=== PATIENT | male | born 1980 | race Caucasian/White ===

== ENCOUNTER 2020-06-27 13:10 | Day surgery (SDC) | payer BC ==
[2020-06-27] MEDS ORDERED: HYDROmorphone 2 MG/ML Syringe ONE (13:51)
--- NOTE | 2020-06-27 14:20 | PCM.PREANE ---
Preanesthetic Assessment - Anesthesia/Transfusion/Family Hx Anesthesia History: Prior Anesthesia Without Reaction Family History of Anesthesia Reaction: No Transfusion History: No Prior Transfusion(s) Intubation History: Unknown - Review of Systems General: No Symptoms Pulmonary: No Symptoms Cardiovascular: No Symptoms Gastrointestinal: No Symptoms Neurological: No Symptoms Other: Reports: None - Physical Assessment Vital Signs: Last Vital Signs Temp 36.2 C 06/27/20 13:35 Pulse 81 06/27/20 13:35 Resp 16 06/27/20 13:35 BP 183/119 H 06/27/20 13:35 Pulse Ox 98 06/27/20 13:35 Height: 5 ft 11 in Weight: 96.615 kg ASA Class: 2 Mental Status: Alert & Oriented x3 Airway Class: Mallampati = 2 Dentition: Reports: Normal Dentition Thyro-Mental Finger Breadths: 3 Mouth Opening Finger Breadths: 3 ROM/Head Extension: Full Lungs: Clear to Auscultation, Normal Respiratory Effort Cardiovascular: Regular Rate, Regular Rhythm - Allergies Allergies/Adverse Reactions: Allergies Allergy/AdvReac Type Severity Reaction Status Date / Time No Known Allergies Allergy Verified 08/09/18 10:44 - Blood Blood Available: No - Anesthesia Plan Pre-Op Medication Ordered: None - Acknowledgements Anesthesia Type Planned: General Anesthesia Pt an Appropriate Candidate for the Planned Anesthesia: Yes Alternatives and Risks of Anesthesia Discussed w Pt/Guardian: Yes Pt/Guardian Understands and Agrees with Anesthesia Plan: Yes PreAnesthesia Questionnaire HEENT History: Reports: Impaired Vision Other HEENT History: wears glasses Cardiovascular History: Reports: Hypertension Respiratory History: Reports: Sleep Apnea Other Respiratory History: states recently had a sleep study and diagnosed with sleep apnea and needs CPAP but has not received it yet Gastrointestinal History: Reports: None Genitourinary History: Reports: Renal Calculus Other Genitourinary History: states has a left kidney stone Musculoskeletal History: Reports: None Neurological History: Reports: Other (See Below) (tremor from time to time probably due to anxiety) Psychiatric History: Reports: Anxiety Endocrine/Metabolic History: Reports: None Immunologic History: Reports: None Oncologic (Cancer) History: Reports: None Dermatologic History: Reports: None - Infectious Disease History Infectious Disease History: Reports: None - Past Surgical History Head Surgeries/Procedures: Reports: None HEENT Surgical History: Reports: None Cardiovascular Surgical History: Reports: None Respiratory Surgical History: Reports: None GI Surgical History: Reports: Colonoscopy (14 - normal) Female Surgical History: Reports: None Endocrine Surgical History: Reports: None Musculoskeletal Surgical History: Reports: None - SUBSTANCE USE Tobacco Use Status *Q: Never Tobacco User Tobacco Use Within Last Twelve Months: Smokeless Tobacco - HOME MEDS Home Medications: Home Meds Metoprolol Succinate 0.5 tab PO DAILY 06/26/20 [History] Zolpidem Tartrate 1 tab PO DAILY 06/26/20 [History] - CURRENT (IN HOUSE) MEDS Current Meds: Current Medications Discontinued Medications Hydromorphone HCl (Dilaudid) Confirm Administered Dose 2 mg .ROUTE .STK-MED ONE Stop: 06/27/20 13:52 Last Admin: 06/27/20 13:55 Dose: 2 mg Documented by:
[2020-06-27] MEDS ORDERED: HYDROmorphone 2 MG/ML Syringe IVPUSH PRN (15:29)
[2020-06-27] MEDS ORDERED: fentaNYL 250 MCG/5 ML SDV ONE (17:05)
[2020-06-27] MEDS ORDERED: Midazolam 1 MG/ML 2 ML SDV ONE (17:05)
[2020-06-27] MEDS ORDERED: Propofol 200 MG/20 ML SDV ONE (17:05)
[2020-06-27] MEDS ORDERED: Ketorolac 30 MG/ML SDV ONE (17:08)
[2020-06-27] MEDS ORDERED: Rocuronium Bromide 50 MG/5 ML Syringe ONE (17:08)
[2020-06-27] MEDS ORDERED: Ondansetron 4 MG/2 ML SDV ONE (17:08)
[2020-06-27] MEDS ORDERED: Lidocaine 2% 5 ML SDV ONE (17:08)
[2020-06-27] MEDS ORDERED: Glycopyrrolate 0.2 MG/ML SDV ONE (17:08)
[2020-06-27] MEDS ORDERED: ceFAZolin 1 GM Vial ONE (17:46)
[2020-06-27] MEDS ORDERED: Sodium Chloride 0.9% 20 ML ONE (17:46)
[2020-06-27] MEDS ORDERED: Iopamidol 408 MG/ML 20 ML SDV ONE (18:00)
[2020-06-27] MEDS ORDERED: fentaNYL 100 MCG/2 ML SDV IVPUSH PRN (18:07)
[2020-06-27] MEDS ORDERED: Acetaminophen 1,000 MG in Premix Bag 1 BAG IV PRN (18:07)
[2020-06-27] MEDS ORDERED: Naloxone 0.4 MG/ML Syringe ONE (18:31)
--- NOTE | 2020-06-27 19:18 | PCM.POSTAN ---
POST ANESTHESIA ASSESSMENT - MENTAL STATUS Mental Status: Alert - VITAL SIGNS Vital Signs: Last Vital Signs Temp 36.6 C 06/27/20 18:35 Pulse 67 06/27/20 19:00 Resp 12 06/27/20 19:00 BP 140/100 H 06/27/20 19:00 Pulse Ox 97 06/27/20 19:00 - RESPIRATORY Respiratory Status: Respiratory Rate WNL - CARDIOVASCULAR CV Status: Pulse Rate WNL - GASTROINTESTINAL GI Status: No Symptoms - POST OP HYDRATION Hydration Status: Adequate & Stable
--- NOTE | 2020-06-27 20:30 | PCM48HPAN ---
Post Anesthesia Note - EVALUATION WITHIN 48HRS OF ANESTHETIC Vital Signs in Normal Range: Yes Patient Participated in Evaluation: Yes Respiratory Function Stable: Yes Airway Patent: Yes Cardiovascular Function Stable: Yes Hydration Status Stable: Yes Pain Control Satisfactory: Yes Nausea and Vomiting Control Satisfactory: Yes Mental Status Recovered: Yes Vital Signs: Last Vital Signs Temp 37.0 C 06/27/20 19:30 Pulse 70 06/27/20 19:30 Resp 18 06/27/20 19:30 BP 121/88 06/27/20 19:30 Pulse Ox 95 06/27/20 19:30
--- NOTE | 2020-06-27 22:54 | OR ---
SURGEON: Preston Villanueva M.D. DATE OF PROCEDURE: 06/27/2020 PRIMARY SURGEON: Preston Villanueva M.D. PREOPERATIVE DIAGNOSIS: Left lower ureteral stone. POSTOPERATIVE DIAGNOSIS: Left lower ureteral stone. OPERATION: Left ureteroscopy and stone removal. DESCRIPTION: The patient was given general anesthesia. He was placed in dorsal lithotomy position and prepped and draped with sterile drapes. Cystourethroscopy was done; that was normal. A Glidewire was advanced alongside the stone all the way up into the renal pelvis. The lower ureter was then dilated using a UroMax II balloon dilator to approximately 15-[place]ammar[place]. The rigid ureteroscope was then advanced in the left lower ureter while the guidewire was still in place. The stone was grasped and removed. The patient tolerated the procedure well. The guidewire was removed. The bladder was emptied. This stone was submitted for analysis, and the patient was moved to the recovery room in good condition. JAEL / TOSHA /[id number]
--- NOTE | 2020-07-01 13:51 | CR ---
EXAM DATE: 06/27/20 PATIENT'S AGE: 39 Patient: GER PHILIP Facility: [facility] Site . Site : [id number] Study: XRay-Pelvis -06/27/2020 7:39:37 PM Ordering Physician: Kay Johnston Final Report: ADDENDUM: Signature line added to report. CRL:jj INDICATION: Fracture. TECHNIQUE: Intraoperative C-arm fluoroscopy. IMPRESSION: Intraoperative C-arm fluoroscopy was provided. Fluoroscopy time 2.6 seconds. Two images were captured. Dictated by: Perez Carr MD @06/30/2020 12:08:10 PM Signed by: Perez Carr MD @06/30/2020 12:08:10 PM Signed by: Perez Carr MD @07/01/2020 1:29:48 PM (Electronic Signature) Report Signed by Proxy. DREW
== END 2020-06-27 20:00 | disposition home or self-care (01) ==
LOC: MW.SDS 13:10 → MW.MS 19:35 → MW.SDS 20:00
PROVIDERS: ATTEND Urology
DX: N13.2 Hydronephrosis with renal and ureteral calculous obstruction (principal); F41.9 Anxiety disorder, unspecified; I10 Essential (primary) hypertension; G47.30 Sleep apnea, unspecified; G47.33 Obstructive sleep apnea (adult) (pediatric); F43.10 Post-traumatic stress disorder, unspecified; Z79.899 Other long term (current) drug therapy; Z87.891 Personal history of nicotine dependence
CPT/HCPCS: 52352; A9270; J0690; J1170; J1885; J2001; J2250; J2405; J2704; J3010; J3490; Q9966; C1769

== ENCOUNTER 2020-10-06 12:28 | Emergency (ER) | payer OTHER, BC ==
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
--- NOTE | 2020-10-06 14:08 | CT ---
INDICATION: Trauma. COMPARISON: None TECHNIQUE: CT examination of the head was performed as axial sections without intravenous contrast. Images were obtained from the vertex of the skull through the skull base. Please note that all CT scans at this facility use dose modulation, iterative reconstruction, and/or weight-based dosing when appropriate to reduce radiation dose to as low as reasonably achievable. FINDINGS: The brain shows no sign of mass lesion, mass effect, hemorrhage, or edema. The ventricles and sulci are normal in appearance for the patient`s age. The visualized portions of the orbits are normal in appearance. There is facial region fracture which will not be described in this report. Those findings will be discussed in the facial report to follow The osseous structures are normal in their appearance with no sign of abnormality in the skull base or calvarium excluding the facial structures discussed in the facial report. IMPRESSION: 1. Facial region fractures as described in the facial bone report 2. No acute intracranial posttraumatic findings. Please note that all CT scans at this facility use dose modulation, iterative reconstruction, and/or weight-based dosing when appropriate to reduce radiation dose to as low as reasonably achievable. Dictated by Blake Viveros MD @ Oct 06 2020 2:04PM Signed by Dr. Blake Viveros @ Oct 06 2020 2:07PM
--- NOTE | 2020-10-06 14:17 | CT ---
Indication: Status post fall facial bruising Technique: CT examination of the facial bones was performed. Imaging was acquired in the axial plane. Contrast was administered. Imaging was acquired from the mid cervical area to above the frontal sinuses. Sagittal and coronal reformatted imaging was performed Comparison: None prior to today Findings: There is a comminuted fracture of the left zygomatic arch. This is inwardly displaced moderately. There is a fracture the left orbital wall laterally. Maximum displacement is about 2 millimeters. The medial wall/lamina papyracea appears to be intact on the left. There is a subtle fracture of the orbital floor on the left through the infraorbital canal. This is not displaced and there is no entrapment the inferior rectus. There are several fractures of the left lateral maxillary wall with maximum displacement of about 3 millimeters. There is an air-fluid level in the left maxillary sinus. There is also a nondisplaced fracture of the anterior wall of the left maxilla far laterally. Impression: Multiple left-sided fractures as described Please note that all CT scans at this facility use dose modulation, iterative reconstruction, and/or weight-based dosing when appropriate to reduce radiation dose to as low as reasonably achievable. Dictated by Blake Viveros MD @ Oct 06 2020 2:07PM Signed by Dr. Blake Viveros @ Oct 06 2020 2:14PM
== END 2020-10-06 16:00 | disposition home or self-care (01) ==
LOC: MW.ED 12:28
DX: S02.40FA Zygomatic fracture, left side, initial encounter for closed fracture (principal); S02.32XA Fracture of orbital floor, left side, initial encounter for closed fracture; S02.40DA Maxillary fracture, left side, initial encounter for closed fracture; S02.842A Fracture of lateral orbital wall, left side, initial encounter for closed fracture; I10 Essential (primary) hypertension; Z79.899 Other long term (current) drug therapy; V89.2XXA Person injured in unspecified motor-vehicle accident, traffic, initial encounter
CPT/HCPCS: 70450; 70450-26; 70486; 70486-26; 99283; 99284-25

== ENCOUNTER 2021-01-07 16:18 | Emergency (ER) | payer BC ==
[2021-01-07] MEDS ORDERED: Ibuprofen 600 MG Tab PO ONE (16:35)
[2021-01-07] MEDS ORDERED: Acetaminophen 325 MG Tab PO ONE (16:35)
--- NOTE | 2021-01-07 17:43 | EDM.PDOC ---
ED HPI GENERAL MEDICAL PROBLEM - General Chief Complaint: Chest Pain Time Seen by Provider: 01/07/21 16:26 - History of Present Illness INITIAL COMMENTS - FREE TEXT/NARRATIVE: HISTORY AND PHYSICAL: History of present illness: This is a healthy 40-year-old gentleman with no significant past medical history for hypertension, diabetes, liver, lung, kidney problems who presents to the ER today after being diagnosed with coronavirus 2 days ago with symptom onset 5 days ago complaining of midepigastric and midsternal chest pain that started this morning. Patient reports that he had increasing cough that started last night with minimal sputum production. Patient reports after having bouts of coughing last night he started having discomfort in his chest and then this morning he reports that the pain was more severe. Patient reports that he had fevers 3 days ago but has not had any fever since. Patient reports that he was having headaches which are unusual for him. Patient is complaining of a cough. Patient denies any nausea, vomiting, diarrhea. Patient reports pain with deep inspiration to his midsternal and midepigastric region. Patient reports reproducible pain with coughing. He reports that the pain is sharp in nature. Patient has any calf tenderness or swelling. Patient denies any history of DVT or PE. Patient reports that he lives with his who has had prior diagnosis of breast cancer but is currently not on any chemotherapy or immunocompromising medications. Patient reports that he is already spoken to the [facility] and they have already contacted him and told that he should be on quarantine until January 12. Patient denies any shortness of breath. Review of systems: As per history of present illness and below otherwise all systems reviewed and negative. Past medical history: As per history of present illness and as reviewed below otherwise noncontributory. Surgical history: As per history of present illness and as reviewed below otherwise noncontributory. Social history: No reported history of drug abuse. Family history: As per history of present illness and as reviewed below otherwise noncontributory. Physical exam: This patient was seen and evaluated during the 2019 SARS-CoV-2 novel coronavirus pandemic period. Community viral transmission is ongoing at time of this encounter and the emergency department is operating under pandemic response procedures. Constitutional: Patient is oriented to person, place, and time. Appears well- developed and well-nourished. No distress. HEENT: Moist mucous membranes Head: Normocephalic and atraumatic Eyes: Right eye exhibits no discharge. Left eye exhibits no discharge. No scleral icterus Neck: Normal range of motion. No tracheal deviation present. Cardiovascular: Normal rate and regular rhythm. Pulmonary: Effort normal, no respiratory distress. Abdominal: No distention Musculoskeletal: Normal range of motion Neurologic: Alert and oriented to person, place and time. Skin: [place], warm and dry. Psychiatric: Normal mood and affect. Behavior is normal. Judgment and thought content normal. Nursing note and vital signs have been reviewed Diagnostics: Chest Xray: Normal cardiac silhouette No infiltrates or effusions identified. No PTX No evidence of acute bony fracture. As interpreted by ER MD: Deborah EKG: As interpreted by ER physician: Deborah: Nonspecific ST-T wave abnormalities Normal axis No evidence of ST elevation [place] Normal sinus rhythm heart rate of 93 Therapeutics: Ibuprofen/Tylenol Assessment and plan: Is a 40-year-old gentleman who presents ER today secondary to sharp, reproducible chest pain with deep inspiration and cough. Patient has a recent diagnosis of coronavirus and is set to self quarantine until January 12. Patient chest x-ray reveals no significant pathology. Patient's EKG is unremarkable. Patient will be discharged home with return precautions if he is short of breath, worsening pain or any other new or concerning symptoms. Reassessment at the time of disposition demonstrates that the patient is in no acute distress. The patient has remained stable throughout the entire ED visit and is without objective evidence for acute process requiring urgent intervention or hospitalization. The patient is stable for discharge, counseling is provided as documented above, discussed symptomatic treatment and specific conditions for return. I have spoken with the patient/caregiver and discussed todays findings, in addition to providing specific details for the plan of care. Questions are answered and there is agreement with the plan. Definitive disposition and diagnosis as appropriate pending reevaluation and review of above. cHEST Pain Score (Numeric/FACES): 7 - Related Data Allergies Allergy/AdvReac Type Severity Reaction Status Date / Time No Known Allergies Allergy Verified 01/07/21 17:02 Home Meds: Home Meds Metoprolol Succinate 0.5 tab PO DAILY 06/26/20 [History] Zolpidem Tartrate 1 tab PO DAILY 06/26/20 [History] Past Medical History HEENT History: Reports: Impaired Vision Other HEENT History: wears glasses Cardiovascular History: Reports: Hypertension Respiratory History: Reports: Sleep Apnea Other Respiratory History: states recently had a sleep study and diagnosed with sleep apnea and needs CPAP but has not received it yet Gastrointestinal History: Reports: None Genitourinary History: Reports: Renal Calculus Other Genitourinary History: states has a left kidney stone Musculoskeletal History: Reports: None Neurological History: Reports: Other (See Below) Psychiatric History: Reports: Anxiety Endocrine/Metabolic History: Reports: None Immunologic History: Reports: None Oncologic (Cancer) History: Reports: None Dermatologic History: Reports: None - Infectious Disease History Infectious Disease History: Reports: Chicken Pox, Shingles - Past Surgical History Head Surgeries/Procedures: Reports: None HEENT Surgical History: Reports: None Cardiovascular Surgical History: Reports: None Respiratory Surgical History: Reports: None GI Surgical History: Reports: Colonoscopy Endocrine Surgical History: Reports: None Musculoskeletal Surgical History: Reports: None Social & Family History - Family History Family Medical History: No Pertinent Family History - Tobacco Use Tobacco Use Status *Q: Never Tobacco User - Caffeine Use Caffeine Use: Reports: None - Recreational Drug Use Recreational Drug Use: No ED ROS GENERAL - Review of Systems Review Of Systems: See Below ED EXAM, GENERAL - Physical Exam Exam: See Below Course - Vital Signs Last Recorded V/S: Last Vital Signs Temp 98.2 F 01/07/21 17:02 Pulse 107 H 01/07/21 17:02 Resp 17 01/07/21 17:02 BP 123/87 01/07/21 17:02 Pulse Ox 96 01/07/21 17:02 - Orders/Labs/Meds Orders: Active Orders 24 hr Category Date Time Status Chest 1V Frontal [CR] Stat Exams 01/07/21 16:36 Taken Meds: Medications Discontinued Medications Generic Name Dose Route Start Last Admin Trade Name Freq PRN Reason Stop Dose Admin Acetaminophen 650 mg 01/07/21 16:35 01/07/21 16:53 Acetaminophen 325 Mg Tab PO 01/07/21 16:36 650 mg NOW ONE Administration Ibuprofen 600 mg 01/07/21 16:35 01/07/21 16:53 Ibuprofen 600 Mg Tab PO 01/07/21 16:36 600 mg ONETIME ONE Administration Departure - Departure Time of Disposition: 17:42 Disposition: Home, Self-Care 01 Condition: Good Clinical Impression: 2019 novel coronavirus disease (COVID-19), Chest pain - Discharge Information Instructions: COVID-19 Frequently Asked Questions, COVID-19: Quarantine vs. Isolation - CDC, Pleurodynia, Chest Wall Pain, Prevent the Spread of COVID-19 if You Are Sick - CDC Referrals: PCP,None [Primary Care Provider] - Forms: ED Department Discharge Additional Instructions: You were seen and evaluated in ER today for further evaluation of chest wall pain which is most likely mechanical in nature from muscles/Bones/cartilage in your chest. This is most likely related to coughing from your coronavirus infection. Your chest x-ray not reveal any significant abnormality and your EKG was normal. Please take ibuprofen and Tylenol as needed for chest wall pain. Please follow-up with your doctor as scheduled. 1. Your COVID-19 screening is positive. That means you do have the coronavirus and you are considered contagious. Your vital signs and oxygen saturation are well enough that you were able to monitor your symptoms at home. Continue to monitor for trouble breathing, new confusion or inability to arouse, bluish lips or face or any of the other symptoms we discussed -if this occurs please return to the emergency room. 2. Please self quarantine over the next 10 days. Inform any persons that you have been in contact with since you started becoming symptomatic that you have tested positive; they should be made aware and take the appropriate steps as needed. 3. You can take NyQuil during the evening to help get a restful night sleep. May alternate Tylenol and ibuprofen as needed for pain and fever management. 4. The [facility] will be calling you and following up with you. The [place] COVID 19 Hotline phone number , They are open Tuesday - Tuesday 7am - 7pm. Follow up with your primary care provider for re-evaluation and re-testing after the 10 day quarantine and discuss when you should be seen. The following information is given to patients seen in the emergency department who are being discharged to home. This information is to outline your options for follow-up care. We provide all patients seen in our emergency department with a follow-up referral. The need for follow-up, as well as the timing and circumstances, are variable depending upon the specifics of your emergency department visit. If you don't have a primary care physician on staff, we will provide you with a referral. We always advise you to contact your personal physician following an emergency department visit to inform them of the circumstance of the visit and for follow-up with them and/or the need for any referrals to a consulting specialist. The emergency department will also refer you to a specialist when appropriate. This referral assures that you have the opportunity for follow-up care with a specialist. All of these measure are taken in an effort to provide you with optimal care, which includes your follow-up. Under all circumstances we always encourage you to contact your private physician who remains a resource for coordinating your care. When calling for follow-up care, please make the office aware that this follow-up is from your recent emergency room visit. If for any reason you are refused follow-up, please contact the [facility] Emergency Department at and asked to speak to the emergency department charge nurse. [facility] [address] [place] [address] [place] [address] Sepsis Event Note (ED) - Evaluation Sepsis Screening Result: No Definite Risk - Focused Exam Vital Signs: Vital Signs Temp Pulse Resp BP Pulse Ox 01/07/21 17:02 98.2 F 107 H 17 123/87 96 - My Orders Last 24 Hours: My Active Orders 01/07/21 16:36 Chest 1V Frontal [CR] Stat - Assessment/Plan Last 24 Hours: My Active Orders 01/07/21 16:36 Chest 1V Frontal [CR] Stat
--- NOTE | 2021-01-07 18:11 | CR ---
INDICATION: Cough and chest pain. COVID positive. TECHNIQUE: Chest 1 views COMPARISON: November 10, 2008. FINDINGS: Cardiovascular and mediastinum: Heart size and vasculature are normal in caliber and appearance. Lungs and pleural spaces: Airspace infiltrate present in the left lower lobe. Remainder of the lungs and pleural spaces are clear. Bones and soft tissues: No significant findings. IMPRESSION: Left lower lobe pneumonia. Dictated by Hima Mccracken MD @ 01/07/2021 6:09:[address] Hima Mccracken @ Jan 07 2021 6:09PM
== END 2021-01-07 17:55 | disposition home or self-care (01) ==
LOC: MW.ED 16:18
DX: U07.1 COVID-19 (principal); I10 Essential (primary) hypertension; E11.9 Type 2 diabetes mellitus without complications; Z79.899 Other long term (current) drug therapy
CPT/HCPCS: 71045; 93005; 99285; A9270; 93010; 99283

== ENCOUNTER 2021-01-12 14:14 | Observation (INO) | payer BC ==
[2021-01-12] MEDS ORDERED: Ondansetron 4 MG/2 ML SDV IVPUSH PRN (14:31)
[2021-01-12] MEDS ORDERED: Docusate Sodium 100 MG Cap PO PRN (14:31)
[2021-01-12] MEDS ORDERED: Sodium Chloride 0.9% 2.5 ML Syringe FLUSH PRN (14:31)
[2021-01-12] MEDS ORDERED: Albuterol/Ipratropium 4 GM Inhalation Spray INH PRN (14:37)
[2021-01-12] MEDS ORDERED: Azithromycin 250 MG Tab PO SCH (14:45)
[2021-01-12] MEDS ORDERED: Enoxaparin 40 MG/0.4 ML Syringe SUBCUT SCH (14:45)
[2021-01-12] MEDS ORDERED: cefTRIAXone 1 GM in Premix Bag 1 BAG IV SCH (14:45)
--- NOTE | 2021-01-12 15:27 | PCM.HP.2 ---
H&P History of Present Illness - General Date of Service: 01/12/21 Admit Problem/Dx: Admission Diagnosis/Problem Admission Diagnosis/Problem Pneumonia Source of Information: Patient History Limitations: Reports: No Limitations - History of Present Illness Initial Comments - Free Text/Narative: This 40-year-old male with past medical history of hypertension and insomnia presented to outpatient clinic due to worsening shortness of breath and chest burning. He reports that he initially started getting sick on January 01 with fatigue and a headache where he self quarantined at home until he could be tested. He tested positive for COVID-19 on January 05 he presented to the ER on January 07 with concerns of shortness of breath and overall not feeling well. Chest x- ray at that time was negative no signs of acute infiltrates lab work stable. He was sent home to monitor symptoms. Patient reports that he is continue to have shortness of breath coughing and burning within his lungs. He reports today he did have some pink sputum which startled him. He reports he had a fever the first weekend for 1 day otherwise no repeat fevers. Denies any major sinus congestion intermittent rhinitis. No sore throat. No complete loss of taste or smell but reports many foods taste extremely salty when the otherwise would not be salty tasting. He reports that he has been monitoring his oxygen at home and has not dropped below 93%. He reports he continues to feel sluggish and tired and not sleeping well. he denies any history of CAD, diabetes. He reports he chews 1 tin of tobacco weekly, no alcohol use and no recreational drug use. He was seen today in urgent clinic lab work obtained which showed normal WBC. Platelet count 196,000, hemoglobin 15.5 hematocrit 45.0 ESR elevated at 35. Sodium and potassium stable BUN and creatinine 13 and 1.0 respectively glucose was 96 no transaminitis noted. Bilirubin 0.3 AST 35 ALT 50 and alk phos 72. Vital signs remained stable 97% on room air no tachycardia noted. Patient was admitted directly due to chest x-ray findings of worsening left-sided infiltrates and suspected CAP and COVID-19. - Related Data Allergies/Adverse Reactions: Allergies Allergy/AdvReac Type Severity Reaction Status Date / Time No Known Allergies Allergy Verified 01/12/21 15:30 Home Medications: Home Meds Metoprolol Succinate 50 mg PO DAILY 06/26/20 [History] Zolpidem Tartrate 1 tab PO DAILY 06/26/20 [History] Past Medical History - Past Health History Medical/Surgical History: Denies Medical/Surgical History HEENT History: Reports: Impaired Vision Other HEENT History: wears glasses Cardiovascular History: Reports: Hypertension Respiratory History: Reports: Sleep Apnea Other Respiratory History: states recently had a sleep study and diagnosed with sleep apnea and needs CPAP but has not received it yet Gastrointestinal History: Reports: None Genitourinary History: Reports: Renal Calculus Other Genitourinary History: states has a left kidney stone Musculoskeletal History: Reports: Other (See Below) Other Musculoskeletal History: facial fractures a couple of years ago Neurological History: Reports: Other (See Below) Other Neuro History: Insomnia Psychiatric History: Reports: Anxiety Endocrine/Metabolic History: Reports: None Immunologic History: Reports: None Oncologic (Cancer) History: Reports: None Dermatologic History: Reports: None - Infectious Disease History Infectious Disease History: Reports: Chicken Pox, Shingles - Past Surgical History Head Surgeries/Procedures: Reports: None HEENT Surgical History: Reports: None Cardiovascular Surgical History: Reports: None Respiratory Surgical History: Reports: None GI Surgical History: Reports: Colonoscopy Male Surgical History: Reports: None Endocrine Surgical History: Reports: None Neurological Surgical History: Reports: None Musculoskeletal Surgical History: Reports: None Social & Family History - Family History Family Medical History: No Pertinent Family History - Tobacco Use Tobacco Use Status *Q: Light Tobacco User Tobacco Use Within Last Twelve Months: Smokeless Tobacco Packs/Tins Daily: 0.2 Used Tobacco, but Quit: Yes Month/Year Tobacco Last Used: 5 years ago Second Hand Smoke Exposure: No - Caffeine Use Caffeine Use: Reports: Coffee - Alcohol Use Alcohol Use Frequency: Rarely, Socially - Recreational Drug Use Recreational Drug Use: No - Living Situation & Occupation Living situation: Reports: Occupation: Employed H&P Review of Systems - Review of Systems: Review Of Systems: See Below General: Reports: Malaise, Fatigue HEENT: Reports: Headaches (Has improved since initial diagnosis of Covid), Rhinitis. Denies: Sore Throat, Vertigo Pulmonary: Reports: Shortness of Breath, Pleuritic Chest Pain, Cough, Sputum ([place] sputum noted this morning) Cardiovascular: Reports: Dyspnea on Exertion. Denies: Chest Pain, Palpitations, Orthopnea Gastrointestinal: Reports: No Symptoms. Denies: Abdominal Pain, Black Stool, Bloody Stool, Diarrhea, Nausea, Vomiting Genitourinary: Reports: No Symptoms. Denies: Dysuria, Frequency, Burning Musculoskeletal: Reports: No Symptoms Skin: Reports: No Symptoms Psychiatric: Reports: No Symptoms Neurological: Reports: No Symptoms Hematologic/Lymphatic: Reports: No Symptoms Immunologic: Reports: No Symptoms Exam - Exam Exam: See Below - Vital Signs Weight: 96.797 kg - Exam General: Alert, Oriented, Cooperative HEENT: Conjunctiva Clear, Mucosa Moist & [place], Posterior Pharynx Clear Neck: Supple Lungs: Crackles (Fine crackles to left lower base). No: Normal Respiratory Effort (Mild dyspnea noted with exertion) Cardiovascular: Regular Rate, Regular Rhythm GI/Abdominal Exam: Normal Bowel Sounds, Soft, Non-Tender, No Distention Extremities: Normal Inspection, Normal Range of Motion, Non-Tender, No Pedal Edema Neuro Extensive - Mental Status: Alert, Oriented x3 Neuro Extensive - Motor, Sensory, Reflexes: CN II-XII Intact Psychiatric: Alert, Normal Affect, Normal Mood Sepsis Event Note - Evaluation Sepsis Screening Result: No Definite Risk - Problem List (1) CAP (community acquired pneumonia) SNOMED Code(s): 198545243 ICD Code: J18.9 - PNEUMONIA, UNSPECIFIED ORGANISM Status: Acute Current Visit: Yes Qualifiers: Laterality: left Lung location: unspecified part of lung Qualified Code(s): J18.9 - Pneumonia, unspecified organism (2) 2019 novel coronavirus disease (COVID-19) SNOMED Code(s): 493243299 ICD Code: U07.1 - COVID-19 Status: Acute Current Visit: No (3) HTN (hypertension) SNOMED Code(s): 79030294 ICD Code: I10 - ESSENTIAL (PRIMARY) HYPERTENSION Status: Chronic Current Visit: Yes Qualifiers: Hypertension type: essential hypertension Qualified Code(s): I10 - Essential (primary) hypertension Problem List Initiated/Reviewed/Updated: Yes Orders Last 24hrs: Active Orders 24 hr Category Date Time Status Patient Status [ADT] Routine ADT 01/12/21 14:31 Ordered Height and Weight [RC] DAILY Care 01/12/21 14:31 Ordered Intake and Output [RC] QSHIFT Care 01/12/21 14:32 Ordered Oxygen Therapy [RC] PRN Care 01/12/21 14:31 Ordered RT Incentive Spirometry [RC] Q1HWA Care 01/12/21 14:37 Ordered RT Post Treatment Assessment [RC] Click to Edit Care 01/12/21 14:38 Ordered RT Pre-Treatment Assessment [RC] Click to Edit Care 01/12/21 14:38 Ordered Telemetry Monitoring [Cardiac Monitoring] [RC] . Care 01/12/21 15:15 Ordered DIRECTED Up With Assistance [RC] ASDIRECTED Care 01/12/21 14:31 Ordered VTE/DVT Education [RC] PER UNIT ROUTINE Care 01/12/21 14:31 Ordered Vital Signs [RC] Q4H Care 01/12/21 14:31 Ordered Regular Diet [DIET] Diet 01/12/21 Lunch Ordered Ang Chest [CT] Urgent Exams 01/12/21 15:08 Ordered CBC WITH AUTO DIFF [HEME] AM Lab 01/13/21 05:11 Ordered COMPREHENSIVE METABOLIC PN,CMP [CHEM] AM Lab 01/13/21 05:11 Ordered MAGNESIUM [CHEM] AM Lab 01/13/21 05:11 Ordered Acetaminophen [TylenoL] Med 01/12/21 14:31 Ordered 650 mg PO Q4H PRN Albuterol/Ipratropium [Combivent Respimat] Med 01/12/21 14:37 Ordered See Dose Instructions INH Q4H PRN Azithromycin [Zithromax] Med 01/12/21 14:45 Ordered 500 mg PO Q24H Codeine/guaiFENesin [Robitussin AC] Med 01/12/21 15:16 Ordered 5 ml PO Q4H PRN Docusate Sodium [Colace] Med 01/12/21 14:31 Ordered 100 mg PO BID PRN Enoxaparin [Lovenox] Med 01/12/21 14:45 Ordered 40 mg SUBCUT Q24H Ondansetron [Zofran] Med 01/12/21 14:31 Ordered 4 mg IVPUSH Q4H PRN Sodium Chloride 0.9% [Saline Flush] Med 01/12/21 14:31 Ordered 2.5 ml FLUSH ASDIRECTED PRN Zaleplon [Sonata] Med 01/12/21 15:16 Ordered 5 mg PO BEDTIME PRN cefTRIAXone [Rocephin in Dextrose,Iso-Osm 1 GM/50 ML] 1 Med 01/12/21 14:45 Ordered gm Premix Bag 1 bag IV Q24H RT Acapella [RESPCARE] Routine Oth 01/12/21 14:37 Ordered Saline Lock Insert [OM.PC] Routine Oth 01/12/21 14:31 Ordered Resuscitation Status Routine Resus Stat 01/12/21 14:31 Ordered Medication Orders Acetaminophen (Acetaminophen 325 Mg Tab) 650 mg PO Q4H PRN PRN Reason: Pain (Mild 1-3)/fever Albuterol/Ipratropium (Albuterol/Ipratropium 4 Gm Inhalation [place]) 0 gm INH Q4H PRN PRN Reason: Dyspnea Azithromycin (Azithromycin 250 Mg Tab) 500 mg PO Q24H [facility] Last Admin: 01/12/21 14:57 Dose: 500 mg Documented by: ABHI Docusate Sodium (Docusate Sodium 100 Mg Cap) 100 mg PO BID PRN PRN Reason: Constipation Enoxaparin Sodium (Enoxaparin 40 Mg/0.4 Ml Syringe) 40 mg SUBCUT Q24H [facility] Last Admin: 01/12/21 14:57 Dose: 40 mg Documented by: ABHI Guaifenesin/Codeine Phosphate (Codeine/Guaifenesin 10-100 Mg/5 Ml Syrup 5 Ml Cup) 5 ml PO Q4H PRN PRN Reason: Cough Ceftriaxone Sodium/Dextrose 1 (gm/ Premix) 50 mls @ 100 mls/hr IV Q24H [facility] Last Admin: 01/12/21 14:57 Dose: 100 mls/hr Documented by: ABHI Ondansetron HCl (Ondansetron 4 Mg/2 Ml Sdv) 4 mg IVPUSH Q4H PRN PRN Reason: Nausea Sodium Chloride (Sodium Chloride 0.9% 2.5 Ml Syringe) 2.5 ml FLUSH ASDIRECTED PRN PRN Reason: Keep Vein Open Zaleplon (Zaleplon 5 Mg Cap) 5 mg PO BEDTIME PRN PRN Reason: Insomnia Assessment/Plan Comment:: This 40-year-old male admitted with CAP and COVID-19 viral pneumonia 1. COVID-19/viral pneumonia -Currently does not meet guidelines for medication to control COVID-19, such as remdesivir and dexamethasone as patient is not hypoxic -Continue supportive care -Encourage I-S and Acapella -Had pink sputum this morning with risk of PE elevated with Covid will obtain CT angio of the chest -Combivent as needed -Prone as possible -Oxygen to keep sats greater than 92% 2. CAP -Rocephin and azithromycin -Monitor oxygen saturations encourage pulmonary toilet as above 3. Hypertension -Continue metoprolol VTE prophylaxis: Lovenox CODE STATUS: Full code Dispo: 1 to 2 days pending improvement. - Mortality Measure Prognosis:: Good
[2021-01-12] MEDS ORDERED: Iopamidol 755 MG/ML 500 ML Multipack Bottle IVPUSH STA (16:05)
--- NOTE | 2021-01-12 16:53 | CT ---
INDICATION: Bloody sputum. Pneumonia. Rule out pulmonary embolism. TECHNIQUE: Volumetric helical scanning of the thorax was performed during infusion of 100 cc of Isovue 370 contrast material IV, timing optimized for pulmonary arterial opacification. Coronal and sagittal reconstructions were obtained. COMPARISON: Today`s chest x-ray. FINDINGS: The images are of acceptable quality and demonstrate uniform vascular enhancement within the pulmonary arteries. No pulmonary arterial filling defect is identified. The heart size is normal. Calcified coronary arterial plaque is demonstrated. The lungs are low in volume. Patchy pneumonias are present in both lungs. No airway abnormality is evident. A tiny right-sided pleural effusion is noted. No mediastinal or hilar lymphadenopathy is demonstrated. Images of the upper abdomen are unremarkable. IMPRESSION: 1. Negative for pulmonary embolism. 2. Patchy pneumonias in both lungs. Question COVID-19 pneumonia. 3. Tiny right-sided pleural effusion. 4. Coronary artery disease. Please note that all CT scans at this facility use dose modulation, iterative reconstruction, and/or weight-based dosing when appropriate to reduce radiation dose to as low as reasonably achievable. Dictated by Madhav Viveros MD @ 01/12/2021 4:52:[address] Madhav Viveros @ Jan 12 2021 4:52PM
[2021-01-12] MEDS ORDERED: Aspirin 81 MG Tab.Chew PO SCH (21:00)
[2021-01-12] MEDS ORDERED: atorvaSTATin 20 MG Tab PO SCH (21:00)
[2021-01-12] MEDS ORDERED: Metoprolol Succinate 50 MG Tab.ER PO SCH (21:00)
[2021-01-12] MEDS: Codeine/guaiFENesin 10-100 MG/5 ML Syrup 5 ML Cup PO PRN (22:20)
[2021-01-12] MEDS: Acetaminophen 325 MG Tab PO PRN (22:21)
[2021-01-13] MEDS: Acetaminophen 325 MG Tab PO PRN (04:02)
[2021-01-13] MEDS: Codeine/guaiFENesin 10-100 MG/5 ML Syrup 5 ML Cup PO PRN (04:02)
[2021-01-13 06:55] LABS: BLOOD UREA NITROGEN,BUN 9 mg/dL (7.0-18.0); CARBON DIOXIDE,CO2 26.4 mmol/L (21.0-32.0); CHLORIDE,CL 103 mmol/L (98-107); GLUCOSE RANDOM 94 mg/dL (74-106); POTASSIUM,K 3.7 mmol/L (3.5-5.1); SODIUM,NA 140 mmol/L (136-148)
--- NOTE | 2021-01-13 08:57 | PCM.DCSUM1 ---
Discharge Summary - Hospital Course Brief History: This 40-year-old male with past medical history of hypertension and insomnia presented to outpatient clinic due to worsening shortness of breath and chest burning. He reports that he initially started getting sick on January 01 with fatigue and a headache where he self quarantined at home until he could be tested. He tested positive for COVID-19 on January 05 he presented to the ER on January 07 with concerns of shortness of breath and overall not feeling well. Chest x-ray at that time was negative no signs of acute infiltrates lab work stable. He was sent home to monitor symptoms. Patient reports that he is continue to have shortness of breath coughing and burning within his lungs. He reports today he did have some pink sputum which startled him. He reports he had a fever the first weekend for 1 day otherwise no repeat fevers. Denies any major sinus congestion intermittent rhinitis. No sore throat. No complete loss of taste or smell but reports many foods taste extremely salty when the otherwise would not be salty tasting. He reports that he has been monitoring his oxygen at home and has not dropped below 93%. He reports he continues to feel sluggish and tired and not sleeping well. he denies any history of CAD, diabetes. He reports he chews 1 tin of tobacco weekly, no alcohol use and no recreational drug use. He was seen today in urgent clinic lab work obtained which showed normal WBC. Platelet count 196,000, hemoglobin 15.5 hematocrit 45.0 ESR elevated at 35. Sodium and potassium stable BUN and creatinine 13 and 1.0 respectively glucose was 96 no transaminitis noted. Bilirubin 0.3 AST 35 ALT 50 and alk phos 72. Vital signs remained stable 97% on room air no tachycardia noted. Patient was admitted directly due to chest x-ray findings of worsening left-sided infiltrates and suspected CAP and COVID-19. - Discharge Data Discharge Date: 01/13/21 Discharge Disposition: Home, Self-Care 01 Condition: Good - Referral to Home Health Primary Care Physician: Jona Oakley MD - Discharge Diagnosis/Problem(s) (1) CAP (community acquired pneumonia) SNOMED Code(s): 099919548 ICD Code: J18.9 - PNEUMONIA, UNSPECIFIED ORGANISM Status: Acute Qualifiers: Laterality: left Lung location: unspecified part of lung Qualified Code(s): J18.9 - Pneumonia, unspecified organism (2) 2019 novel coronavirus disease (COVID-19) SNOMED Code(s): 667187490 ICD Code: U07.1 - COVID-19 Status: Acute (3) HTN (hypertension) SNOMED Code(s): 83265433 ICD Code: I10 - ESSENTIAL (PRIMARY) HYPERTENSION Status: Chronic Qualifiers: Hypertension type: essential hypertension Qualified Code(s): I10 - Essential (primary) hypertension - Patient Summary/Data Hospital Course: Admission diagnoses CAP COVID-19 viral pneumonia Discharge diagnoses CAP COVID-19 viral pneumonia Other H Hypertension Magdi was admitted secondary to community-acquired pneumonia likely secondary to COVID-19. Patient was admitted directly from clinic all lab work essentially normal. CTA was obtained due to pink sputum noted by patient. CTA ruled out PE but did show Patchy pneumonia in both lungs questionable for COVID-19 pneumonia. Is also noted to have a tiny right-sided pleural effusion. Patient was started on Rocephin and azithromycin for CAP. Patient's vital signs remained stable overnight oxygen remained well above 93% on room air. He was counseled on using I-S and Acapella and proning as possible. Patient very eager to be discharged home today as he is feeling improved continues to feel fatigued which is likely secondary to COVID-19 infection. He will continue cefdinir 300 mg twice daily for total of 5 days days along with a azithromycin for another 3 days. He was counseled on recommendations for continuing to quarantine as he is continued to have symptoms. Also social distancing and wearing a mask when in public places. He was recommended to receive Covid vaccine when symptoms have improved. Patient verbalized understanding. He is to see PCP in 1 week return to the ER or clinic if concerns should arise. He was encouraged to monitor symptoms and oxygenation at home and if sats were to drop below 90% or breathing becomes worse he is to seek medical attention quickly. - Patient Instructions Diet: Heart Healthy Diet Activity: No Strenuous Activities, Rest and Relax Today Driving: Do Not Drive (while taking cough syrup) Showering/Bathing: May Shower Notify Provider of: Fever, Increased Pain, Swelling and Redness, Drainage, Nausea and/or Vomiting Other/Special Instructions: Continue to socially distance and wear a mask once feeling improved. Would quarantine for another 5 days due to pneumonia and continued symptoms. Return to ER or clinic if symptoms worsen or you notice oxygen saturations are dipping below 90% at home. Recommend Covid vaccination when symptoms have improved. - Discharge Plan *PRESCRIPTION DRUG MONITORING PROGRAM REVIEWED*: Not Applicable *COPY OF PRESCRIPTION DRUG MONITORING REPORT IN PATIENT RHIANNON: Not Applicable Prescriptions/Med Rec: Albuterol/Ipratropium [Combivent Respimat] 1 puff INH Q4H PRN #1 inhaler PRN Reason: Shortness Of Breath Cefdinir [Omnicef] 300 mg PO BID #10 cap Codeine/guaiFENesin [Robitussin AC] 5 ml PO Q4H PRN #100 ml PRN Reason: Cough Azithromycin [Zithromax] 500 mg PO Q24H #6 tablet Home Medications: Home Meds Metoprolol Succinate 50 mg PO DAILY 06/26/20 [History] Zolpidem Tartrate 10 mg PO DAILY 06/26/20 [History] Acetaminophen [Tylenol] 650 mg PO Q4H PRN tablet 01/13/21 [Rx] Albuterol/Ipratropium [Combivent Respimat] 1 puff INH Q4H PRN #1 inhaler 01/13/21 [Rx] Azithromycin [Zithromax] 500 mg PO Q24H #6 tablet 01/13/21 [Rx] Cefdinir [Omnicef] 300 mg PO BID #10 cap 01/13/21 [Rx] Codeine/guaiFENesin [Robitussin AC] 5 ml PO Q4H PRN #100 ml 01/13/21 [Rx] Oxygen Therapy Mode: Room Air Patient Handouts: Ipratropium; Albuterol Inhalation Onsted (Combivent Respimat), Cefdinir Capsules, 10 Things You Can Do to Manage Your COVID-19 Symptoms at Home - CDC, Azithromycin tablets, Codeine; Guaifenesin oral solution or syrup Referrals: Sofia Munoz NP [Nurse Practitioner] - 01/16/21 11:15 am - Discharge Summary/Plan Comment DC Time >30 min.: No - Patient Data Vitals - Most Recent: Last Vital Signs Temp 97.8 F 01/13/21 07:56 Pulse 89 01/13/21 07:56 Resp 15 01/13/21 07:56 BP 144/88 H 01/13/21 07:56 Pulse Ox 95 01/13/21 07:56 Weight - Most Recent: 96.162 kg I&O - Last 24 hours: Intake & Output 01/12/21 01/13/21 01/13/21 22:59 06:59 14:59 Intake Total 1999 Balance 1999 Lab Results - Last 24 hrs: Laboratory Results - last 24 hr 01/13/21 01/13/21 Range/Units 06:14 06:14 WBC 5.73 (4.0-11.0) K/uL RBC 4.35 L (4.50-5.90) M/uL Hgb 13.4 (13.0-17.0) g/dL Hct 39.3 (38.0-50.0) % MCV 90.3 (80.0-98.0) fL MCH 30.8 (27.0-32.0) pg MCHC 34.1 (31.0-37.0) g/dL RDW Std Deviation 42.5 (28.0-62.0) fl RDW Coeff of Yulissa 13 (11.0-15.0) % Plt Count 205 (150-400) K/uL MPV 10.30 (7.40-12.00) fL Add Manual Diff YES Neutrophils % (Manual) 51 (48.0-80.0) % Band Neutrophils % 10 % Lymphocytes % (Manual) 24 (16.0-40.0) % Monocytes % (Manual) 12 (0.0-15.0) % Eosinophils % (Manual) 3 (0.0-7.0) % Nucleated RBC % 0.0 /100WBC Absolute Seg Neuts 2.9 (1.4-5.7) Band Neutrophils # 0.6 Lymphocytes # (Manual) 1.4 (0.6-2.4) Monocytes # (Manual) 0.7 (0.0-0.8) Eosinophils # (Manual) 0.2 (0.0-0.7) Nucleated RBCs # 0 K/uL Sodium 140 (136-148) mmol/L Potassium 3.7 (3.5-5.1) mmol/L Chloride 103 (98-107) mmol/L Carbon Dioxide 26.4 (21.0-32.0) mmol/L BUN 9 (7.0-18.0) mg/dL Creatinine 1.0 (0.8-1.3) mg/dL Est Cr Clr Drug Dosing 103.54 mL/min Estimated GFR (MDRD) > 60.0 ml/min Glucose 94 (74-106) mg/dL Calcium 7.9 L (8.5-10.1) mg/dL Magnesium 2.0 (1.8-2.4) mg/dL Total Bilirubin 0.4 (0.2-1.0) mg/dL AST 33 (15-37) IU/L ALT 48 (14-63) IU/L Alkaline Phosphatase 66 (46-116) U/L Total Protein 6.7 (6.4-8.2) g/dL Albumin 3.0 L (3.4-5.0) g/dL Globulin 3.7 (2.6-4.0) g/dL Albumin/Globulin Ratio 0.8 L (0.9-1.6) Med Orders - Current: Current Medications Acetaminophen (Acetaminophen 325 Mg Tab) 650 mg PO Q4H PRN PRN Reason: Pain (Mild 1-3)/fever Last Admin: 01/13/21 04:02 Dose: 650 mg Documented by: Albuterol/Ipratropium (Albuterol/Ipratropium 4 Gm Inhalation Onsted) 0 gm INH Q4H PRN PRN Reason: Dyspnea Aspirin (Aspirin 81 Mg Tab.Chew) 81 mg PO BEDTIME [facility] Last Admin: 01/12/21 22:20 Dose: 81 mg Documented by: Atorvastatin Calcium (Atorvastatin 20 Mg Tab) 20 mg PO BEDTIME [facility] Last Admin: 01/12/21 22:20 Dose: 20 mg Documented by: Azithromycin (Azithromycin 250 Mg Tab) 500 mg PO Q24H [facility] Last Admin: 01/13/21 08:49 Dose: 500 mg Documented by: Docusate Sodium (Docusate Sodium 100 Mg Cap) 100 mg PO BID PRN PRN Reason: Constipation Enoxaparin Sodium (Enoxaparin 40 Mg/0.4 Ml Syringe) 40 mg SUBCUT Q24H [facility] Last Admin: 01/12/21 14:57 Dose: 40 mg Documented by: Guaifenesin/Codeine Phosphate (Codeine/Guaifenesin 10-100 Mg/5 Ml Syrup 5 Ml Cup) 5 ml PO Q4H PRN PRN Reason: Cough Last Admin: 01/13/21 04:02 Dose: 5 ml Documented by: Ceftriaxone Sodium/Dextrose 1 (gm/ Premix) 50 mls @ 100 mls/hr IV Q24H [facility] Metoprolol Succinate (Metoprolol Succinate 50 Mg Tab.Er) 50 mg PO BEDTIME [facility] Last Admin: 01/12/21 22:19 Dose: 50 mg Documented by: Ondansetron HCl (Ondansetron 4 Mg/2 Ml Sdv) 4 mg IVPUSH Q4H PRN PRN Reason: Nausea Sodium Chloride (Sodium Chloride 0.9% 2.5 Ml Syringe) 2.5 ml FLUSH ASDIRECTED PRN PRN Reason: Keep Vein Open Zaleplon (Zaleplon 5 Mg Cap) 5 mg PO BEDTIME PRN PRN Reason: Insomnia Last Admin: 01/12/21 22:18 Dose: 5 mg Documented by: Discontinued Medications Azithromycin (Azithromycin 250 Mg Tab) 500 mg PO Q24H [facility] Last Admin: 01/12/21 14:57 Dose: 500 mg Documented by: Ceftriaxone Sodium/Dextrose 1 (gm/ Premix) 50 mls @ 100 mls/hr IV Q24H [facility] Last Admin: 01/12/21 14:57 Dose: 100 mls/hr Documented by: Iopamidol (Iopamidol 755 Mg/Ml 500 Ml Multipack Bottle) 100 ml IVPUSH ONETIME STA Stop: 01/12/21 16:06 Last Admin: 01/12/21 16:06 Dose: 100 ml Documented by:
[2021-01-13] MEDS ORDERED: cefTRIAXone 1 GM in Premix Bag 1 BAG IV SCH (09:00)
[2021-01-13] MEDS ORDERED: Azithromycin 250 MG Tab PO SCH (09:00)
== END 2021-01-13 10:20 | disposition home or self-care (01) ==
LOC: MW.MS 14:14
PROVIDERS: ADMIT Student in an Organized Health Care Education/Training Program; ATTEND Student in an Organized Health Care Education/Training Program
DX: U07.1 COVID-19 (principal); J12.82 Pneumonia due to coronavirus disease 2019; I10 Essential (primary) hypertension; R53.1 Weakness; F17.210 Nicotine dependence, cigarettes, uncomplicated; Z79.899 Other long term (current) drug therapy
CPT/HCPCS: 36415; 71275; 80053; 83735; 85025; 94667; 96365; 96372; 96376; A9270; G0378; G0379; J0696; J1650; Q9967